=== PATIENT | female | born 1995 | race Caucasian/White ===

== ENCOUNTER 2022-07-22 10:00 | Emergency (ER) | payer OTHER ==
[~2022-07-22] VITALS: Ht 167.6 cm; Wt 96.3 kg
[2022-07-22] MEDS ORDERED: KETOROLAC TROMETHAMINE 10 MG TAB PO ONE (11:15)
[2022-07-22] MEDS ORDERED: methocarbamoL 750 MG TAB PO ONE (11:15)
[2022-07-22] MEDS ORDERED: PENICILLIN V POTASSIUM 500 MG TAB PO ONE (12:10)
[2022-07-22] MEDS ORDERED: METH-1164 PO (12:19)
[2022-07-22] MEDS ORDERED: PENI500T PO (12:19)
[2022-07-22] MEDS ORDERED: KETO10TAB PO (12:19)
[2022-07-22 12:25] VITALS: BP 124/74
== END 2022-07-22 12:33 | disposition home or self-care (01) ==
LOC: M ED 10:00
DX: J02.0 Streptococcal pharyngitis (principal); G89.29 Other chronic pain; M54.50 Low back pain, unspecified; J45.909 Unspecified asthma, uncomplicated; Z79.899 Other long term (current) drug therapy